=== PATIENT | female | born 1960 | race Caucasian/White ===

== ENCOUNTER → 2018-02-11 | Outpatient (CLI) | payer BC | LOC: MC.RAD 01-26 13:40 | DX: Z12.31 Encounter for screening mammogram for malignant neoplasm of breast (principal); N64.89 Other specified disorders of breast ==

== ENCOUNTER → 2018-02-25 | Outpatient (CLI) | payer BC | LOC: MC.RAD 07:30 | DX: N64.89 Other specified disorders of breast (principal) ==